=== PATIENT | female | born 1940 | race Caucasian/White ===

== ENCOUNTER 2023-06-28 13:09 | Outpatient (REF) | payer MEDICARE, SELFPAY ==
[2023-06-28 16:20] LABS: Hematocrit 43.4 % (37.0-47.0); Hemoglobin 14.7 g/dl (12.0-16.0); Mean Corpuscular HGB Conc 33.9 g/dl (31.0-35.0); Mean Corpuscular Hemoglobin 30.8 pg (27.0-33.0); Mean Platelet Volume 10.8 fL (9.4-12.3); Platelet Count 255 X10*3/uL (160-400); Red Blood Count 4.77 X10*6/uL (4.20-5.50); Red Cell Distribution Width 13.2 % (11.0-16.0)
[2023-06-28 16:30] LABS: Estimated Average Glucose 123 mg/dL; Hemoglobin A1c % 5.9 % (<6.0)
[2023-06-28 18:34] LABS: Creatinine Urine 53.16 mg/dL
[2023-06-28 18:46] LABS: Alanine Aminotransferase 17 U/L (0-31); Albumin Level 4.3 g/dL (3.5-5.0); Alkaline Phosphatase 101 U/L (39-117); Anion Gap 17 (12-20); Aspartate Amino Transferase 20 U/L (5-31); Bilirubin Direct 0.1 mg/dL (0.0-0.5); Bilirubin Total 0.5 mg/dL (0.0-1.0); Blood Urea Nitrogen 9 mg/dL (9-16); Calcium 9.9 mg/dL (8.4-10.2); Carbon Dioxide 23 mmol/L (22-29); Chloride 105 mmol/L (96-108); Cholesterol 241 mg/dL (<200); Estimated Glomerular Filt Rate > 60; Glucose Random 75 mg/dL (60-115); HDL Cholesterol 47 mg/dL (>40); Potassium 3.5 mmol/L (3.3-5.1); Sodium 141 mmol/L (135-145); Total Protein 7.8 g/dL (6.5-8.0); Triglycerides 400 mg/dL (<150)
[2023-06-28 18:54] LABS: Free T4 (Free Thyroxine) 0.91 ng/dL (0.71-1.85); Thyroid Stimulating Hormone 1.92 uIU/mL (0.32-4.0); Vitamin D 25-OH Total 32.7 ng/mL (>30)
== END 2023-06-28 13:10 | disposition home or self-care (01) ==
LOC: HO.HHCL 13:09
PROVIDERS: Visit Provider Family Medicine
DX: I10 Essential (primary) hypertension (principal); E78.49 Other hyperlipidemia
CPT/HCPCS: 36415; 80048; 80061; 80076; 82043; 82306; 82570; 83036; 84439; 84443; 85027

== ENCOUNTER 2024-06-16 11:22 | Outpatient (REF) | payer OTHER, SELFPAY ==
[2024-06-16 13:26] LABS: Hematocrit 42.5 % (37.0-47.0); Hemoglobin 13.9 g/dl (12.0-16.0); Mean Corpuscular HGB Conc 32.7 g/dl (31.0-35.0); Mean Corpuscular Hemoglobin 30.1 pg (27.0-33.0); Mean Platelet Volume 11.4 fL (9.4-12.3); Platelet Count 216 X10*3/uL (160-400); Red Blood Count 4.62 X10*6/uL (4.20-5.50); Red Cell Distribution Width 13.1 % (11.0-16.0); White Blood Count 7.3 X10*3/uL (4.8-10.8)
[2024-06-16 13:30] LABS: Estimated Average Glucose 120 mg/dL; Hemoglobin A1C 144.2933 umol/L; Hemoglobin A1c % 5.8 % (<6.0); Total Hemoglobin (HGBA1C) 3621.3433 umol/L
[2024-06-16 13:41] LABS: Alanine Aminotransferase 14 U/L (0-31); Albumin Level 4.1 g/dL (3.5-5.0); Alkaline Phosphatase 103 U/L (39-117); Anion Gap 11 (12-20); Aspartate Amino Transferase 22 U/L (5-31); Bilirubin Direct 0.2 mg/dL (0.0-0.5); Bilirubin Total 0.5 mg/dL (0.0-1.0); Blood Urea Nitrogen 10 mg/dL (9-16); Calcium 9.8 mg/dL (8.4-10.2); Carbon Dioxide 30 mmol/L (22-29); Chloride 105 mmol/L (96-108); Cholesterol 205 mg/dL (<200); Estimated Glomerular Filt Rate > 60; Glucose Random 101 mg/dL (60-115); HDL Cholesterol 40 mg/dL (>40); Sodium 142 mmol/L (135-145); Total Protein 7.3 g/dL (6.5-8.0); Triglycerides 465 mg/dL (<150)
[2024-06-16 13:47] LABS: Free T4 (Free Thyroxine) 0.83 ng/dL (0.71-1.85); Thyroid Stimulating Hormone 1.65 uIU/mL (0.32-4.0); Vitamin D 25-OH Total 59.6 ng/mL (>30)
--- OUTSIDE RECORDS SUMMARY | 2024-06-16 13:47 | XMS_ITS | Encounter Summary ---
Author Organization [employer] Address [address] [facility] 7t [place] [address] Care Team Providers Care Paramedic Instructor Name Role Phone Verna Sullivan DO Primary Care Provider + [phone] Encounter Details Date Type Department Care Team ([facility] st Contact Info) Description 06/12/2023 Telephone [facility] MEDICINE [address] [place], [place] [phone] Verna Sullivan DO [address] [place], [place] [phone] Social History Tobacco Use Types Packs/Day Years Used Date Smoking Tobacco: Former Cigarettes Q uit: 11/21/2021 Passive Smoke Exposure: Past Smokeless Tobacco: Never Alcohol Use Standard Drinks/Week Comments Never 0 (1 standard drink = 0.6 oz pur e alcohol) Depression Answer Date Recorded Patient Health Questionnaire-9 Score 3 05/15/2022 Housing Stability Answer Date Recorded What is your housing situation today? I have gigi segovia 12/04/[address] you li ve. Do you have problems with any of the following? None of the above 12/04/2022 Food Insecurity Answer Date Recorded Within the past 12 months, y ou worried that your food would run out before you got money to buy more: Never True 12/04/2022 Within the past 12 months,th e food you bought just didn't last and you didn't have enough money to get more: Never True Transportation Answer Date Recorded In the past 12 months, has l ack of transportation kept you from medical appts, meetings, work or from getting things needed for daily living? No 12/04/2022 Utilities Answer Date Recorded In the past 12 months, has t he electric, gas, oil or water company threatened to shut off services in your home? No 12/04/2022 Depression Answer Date Recorded Patient Health Questionnaire-2 Score 2 05/15/2022 Comments Unknown Sex and Gender Information Value Date Recorded Sex Assigned at Female 12/19/2021 10:19 AM EDT Legal Sex Female 10:19 AM EDT Gender Identity Female 12/19/2021 10:19 AM EDT Sexual Orientation Choose not to disclose 2021 10:19 AM EDT documented as of this encounter Plan of Treatment Upcoming Encounters Date Type Department Care Team (Late st Contact Info) Description 09/05/2024 2:00 PM EDT Telemedicine [facility] MEDICINE [address] [place] [address] Lucrecia Shah RN documented as of this encounter Visit Diagnoses Not on filedocumented in this encounter Additional Health Concerns Assessment Noted Time PHQ-9 Depression Total Score: 3 05/16/19 23 9:13 AM EDT documented as of this encounter Care Teams Paramedic Instructor Relationship Specialty Start Date End Date Verna Sullivan DO [address] [place] [address] PCP - General Family Medicine 02/01/12 documented as of this encounter
--- OUTSIDE RECORDS SUMMARY | 2024-06-16 13:47 | XMS_ITS | Encounter Summary ---
Author Organization [employer] Address [address] [facility] 7t [place] [address] Care Team Providers Care Nurse Sane Name Role Phone Verna Sullivan DO Primary Care Provider + [phone] Reason for Visit * Reason Comments Med Refill Encounter Details Date Type Department Care Team (Late st Contact Info) Description 06/10/2024 Refill [facility] MEDICINE [address] [place], [place] [phone] Verna Sullivan DO 230 [place], [place] [phone] Social History Tobacco Use Types Packs/Day Years Used Date Smoking Tobacco: Former Cigarettes Q uit: 11/21/2021 Passive Smoke Exposure: Past Smokeless Tobacco: Never Alcohol Use Standard Drinks/Week Comments Never 0 (1 standard drink = 0.6 oz pur e alcohol) Alcohol Answer Date Recorded Frequency of Alcohol Consumption Not on file 10/30/2023 Average Number of Drinks Not on file 024 Frequency of Binge Drinking Not on file 10/20 Score 0 10/30/2023 Depression Answer Date Recorded Patient Health Questionnaire-9 Score 6 10/30/2023 Patient Health Questionnaire-9 Score 6 10/30/2023 Last PHQ-9: Questionnaire Data Not on file 0 10/30/2023 Housing Stability Answer Date Recorded What is your housing situation today? I have gigi segovia 06/28/[address] you li ve. Do you have problems with any of the following? None of the above 06/28/2023 Food Insecurity Answer Date Recorded Within the past 12 months, y ou worried that your food would run out before you got money to buy more: Never True 06/28/2023 Within the past 12 months,th e food you bought just didn't last and you didn't have enough money to get more: Never True 10/2023 Transportation Answer Date Recorded In the past 12 months, has l ack of transportation kept you from medical appts, meetings, work or from getting things needed for daily living? No 06/28/2023 Utilities Answer Date Recorded In the past 12 months, has t he electric, gas, oil or water company threatened to shut off services in your home? No 06/28/2023 Depression Answer Date Recorded Patient Health Questionnaire-2 Score 3 10/30/2023 Comments Unknown Sex and Gender Information Value [...] Info) Description 09/05/2024 2:00 PM EDT Telemedicine [facility] MEDICINE [address] [place] [address] Lucrecia Shah RN documented as of this encounter Visit Diagnoses Not on filedocumented in this encounter Additional Health Concerns Assessment Noted Time PHQ-9 Depression Total Score: 6 10/30/19 24 10:37 AM EDT documented as of this encounter Care Teams Nurse Sane Relationship Specialty Start Date End Date Verna Sullivan DO [address] [place] [address] PCP - General Family Medicine 02/01/12 documented as of this encounter
--- OUTSIDE RECORDS SUMMARY | 2024-06-16 13:47 | XMS_ITS | Encounter Summary ---
Author Organization [employer] Address [address] [facility] 7t [place] [address] Care Team Providers Care Training Analyst Name Role Phone Verna Sullivan DO Primary Care Provider + [phone] Reason for Visit * Reason Comments Med Refill Encounter Details Date Type Department Care Team (Late st Contact Info) Description 06/06/2024 Refill [facility] MEDICINE [address] [place], [place] [phone] Verna Sullivan DO [address] [place], [place] [phone] Social History Tobacco Use Types Packs/Day Years [...] your housing situation today? I have gigi sgeovia 06/28/[address] you li [...] Description 09/05/2024 2:00 PM EDT Telemedicine [facility] MEDICINE [address] [place] [address] Lucrecia Shah RN documented as of this encounter Visit Diagnoses Not on filedocumented in this encounter Additional Health Concerns Assessment Noted Time PHQ-9 Depression Total Score: 6 10/30/19 24 10:37 AM EDT documented as of this encounter Care Teams Training Analyst Relationship Specialty Start Date End Date Verna Sullivan DO [address] [place] [address] PCP - General Family Medicine 02/01/12 documented as of this encounter
--- OUTSIDE RECORDS SUMMARY | 2024-06-16 13:47 | XMS_ITS | Encounter Summary ---
Author Organization [employer] Address [address] [facility] 7[address] [place] [address] Care Team Providers Care Railway Signalling Engineer Name Role Phone Verna Sullivan DO Primary Care Provider + [phone] Reason for Visit * Reason Comments Med Refill Encounter Details Date Type Department Care Team (Late st Contact Info) Description 06/12/2023 Refill [facility] MEDICINE [address] [place], [place] [phone] Verna Sullivan DO [address] [place], [place] [phone] Social History Tobacco Use Types Packs/Day Years [...] Info) Description 09/05/2024 2:00 PM EDT Telemedicine [facility] MEDICINE [address] [place] [address] Lucrecia Shah RN documented as of this encounter Visit Diagnoses Not on filedocumented in this encounter Additional Health Concerns Assessment Noted Time PHQ-9 Depression Total Score: 3 05/16/19 23 9:13 AM EDT documented as of this encounter Care Teams Railway Signalling Engineer Relationship Specialty Start Date End Date Verna Sullivan DO [address] [place] [address] PCP - General Family Medicine 02/01/12 documented as of this encounter
--- OUTSIDE RECORDS SUMMARY | 2024-06-16 13:47 | XMS_ITS | Encounter Summary ---
Author Organization [employer] [facility] Address [address] [facility] 7t [place] [address] Care Team Providers Care Sfdc Solution Architect Name Role Phone Verna Sullivan DO Primary Care Provider + [phone] Reason for Visit * Reason Comments Med Refill Encounter Details Date Type Department Care Team (Late st Contact Info) Description 06/07/2022 Refill [facility] MEDICINE [address] [place], [place] [phone] Verna Sullivan DO [address] [place], [place] [phone] S/P lobectomy of lung Social History Tobacco Use Types Packs/Day Years Used Date Smoking Tobacco: Former Cigarettes Q uit: 11/21/2021 Passive Smoke Exposure: Past Smokeless Tobacco: Never Alcohol Use Standard Drinks/Week Comments Never 0 (1 standard drink = 0.6 oz pur e alcohol) Depression Answer Date Recorded Patient Health Questionnaire-9 Score 3 05/15/2022 Depression Answer Date Recorded Patient Health Questionnaire-2 Score 2 05/15/2022 Comments Unknown Sex and Gender Information Value Date Recorded Sex Assigned at Female 12/19/2021 10:19 AM EDT Legal Sex Female 10:19 AM EDT Gender Identity Female 12/19/2021 10:19 AM EDT Sexual Orientation Choose not to disclose 2021 10:19 AM EDT COVID-19 Exposure Response Date Recorded In the last 10 days, have yo u been in contact with someone who was confirmed or suspected to have Coronavirus/COVID-19? No / Unsure 05/15/2022 9:02 AM EDT documented as of this encounter Plan of Treatment Upcoming Encounters Date Type Department Care Team (Late st Contact Info) Description 09/05/2024 2:00 PM EDT Telemedicine [facility] MEDICINE [address] [place] [address] Lucrecia Shah RN documented as of this encounter Visit Diagnoses Diagnosis S/P lobectomy of lung Other postprocedural status documented in this encounter Additional Health Concerns Assessment Noted Time PHQ-9 Depression Total Score: 3 05/16/19 23 9:13 AM EDT documented as of this encounter Care Teams Sfdc Solution Architect Relationship Specialty Start Date End Date Verna Sullivan DO [address] [place] [address] PCP - General Family Medicine 02/01/12 documented as of this encounter
--- OUTSIDE RECORDS SUMMARY | 2024-06-16 13:47 | XMS_ITS | Encounter Summary ---
Author Organization [employer] Address [address] [facility] 7t [place] [address] Care Team Providers Care Shipyard Painter Name Role Phone Verna Sullivan DO Primary Care Provider + [phone] Reason for Visit * Reason Comments Med Refill Encounter Details Date Type Department Care Team (Late st Contact Info) Description 01/20/2023 Refill [facility] MEDICINE [address] [place], [place] [phone] Verna Sullivan DO [address] [place], [place] [phone] Social History Tobacco Use Types Packs/Day Years [...] Info) Description 09/05/2024 2:00 PM EDT Telemedicine [facility] MEDICINE [address] [place] [address] Lucrecia Shah RN documented as of this encounter Visit Diagnoses Not on filedocumented in this encounter Additional Health Concerns Assessment Noted Time PHQ-9 Depression Total Score: 3 05/16/19 23 9:13 AM EDT documented as of this encounter Care Teams Shipyard Painter Relationship Specialty Start Date End Date Verna Sullivan DO [address] [place] [address] PCP - General Family Medicine 02/01/12 documented as of this encounter
--- OUTSIDE RECORDS SUMMARY | 2024-06-16 13:47 | XMS_ITS | Encounter Summary ---
Author Organization [employer] Address [address] [facility] 7t [place] [address] Care Team Providers Care Dockmaster Name Role Phone Verna Sullivan DO Primary Care Provider + [phone] Reason for Visit * Reason Onset Date Comments Durable Medical Equipment 01/02/2024 Encounter Details Date Type Department Care Team ([facility] st Contact Info) Description 01/02/2024 Telephone [facility] MEDICINE [address] [place], [place] [phone] Verna Sullivan DO [address] [place] [address] Durable Medical Equipment Social History Tobacco Use Types Packs/Day Years [...] AM EDT documented as of this encounter Miscellaneous Notes * Telephone Encounter - Laurie Hector - 01/02/2024 12:48 PM EST Tc from pt daughter Maria Del Carmen requesting status on DME recliner discussed during last office visit (10/30/23). If any questions contact Maria Del Carmen at [phone] documented in this encounter Plan of Treatment Upcoming Encounters Date Type Department Care Team (Late st Contact Info) Description 09/05/2024 2:00 PM EDT Telemedicine [facility] MEDICINE [address] [place] [address] Lucrecia Shah, TAMIR documented as of this encounter Visit Diagnoses Not on filedocumented in this encounter Additional Health Concerns Assessment Noted Time PHQ-9 Depression Total Score: 6 10/30/19 10:37 AM EDT documented as of this encounter Care Teams Dockmaster Relationship Specialty Start Date End Date Verna Sullivan DO [address] [place] [address] PCP - General Family Medicine 02/01/12 documented as of this encounter
--- OUTSIDE RECORDS SUMMARY | 2024-06-16 13:47 | XMS_ITS | Encounter Summary ---
Author Organization [employer] Address [address] [facility] 7t [place] [address] Care Team Providers Care Marketing Assistant Name Role Phone Verna Sullivan Primary Care Provider + [phone] Reason for Visit * Reason Comments Med Refill Encounter Details Date Type Department Care Team (Late st Contact Info) Description 05/07/2024 Refill [facility] MEDICINE 230 [place], [place] [phone] [facility] [address] [place], [place] [phone] Social History Tobacco Use Types Packs/Day Years [...] Info) Description 09/05/2024 2:00 PM EDT Telemedicine [facility] MEDICINE [address] [place] [address] Lucrecia Shah RN documented as of this encounter Visit Diagnoses Not on filedocumented in this encounter Additional Health Concerns Assessment Noted Time PHQ-9 Depression Total Score: 6 10/30/19 24 10:37 AM EDT documented as of this encounter Care Teams Marketing Assistant Relationship Specialty Start Date End Date Verna Sullivan DO [address] [place] [address] PCP - General Family Medicine 02/01/12 documented as of this encounter
--- OUTSIDE RECORDS SUMMARY | 2024-06-16 13:47 | XMS_ITS | Encounter Summary ---
Author Organization [employer] Address [address] [facility] 7t [place] [address] Care Team Providers Care Dental Office Assistant Name Role Phone Verna Sullivan Primary Care Provider + [phone] Reason for Visit * Reason Comments Med Refill Encounter Details Date Type Department Care Team (Late st Contact Info) Description 06/12/2023 Refill [facility] MEDICINE [address] [place], [place] [phone] [facility] [address] [place], [place] [phone] Social History Tobacco Use Types Packs/Day Years [...] Info) Description 09/05/2024 2:00 PM EDT Telemedicine [facility] MEDICINE [address] [place] [address] Lucrecia Shah RN documented as of this encounter Visit Diagnoses Not on filedocumented in this encounter Additional Health Concerns Assessment Noted Time PHQ-9 Depression Total Score: 3 05/16/19 23 9:13 AM EDT documented as of this encounter Care Teams Dental Office Assistant Relationship Specialty Start Date End Date Verna Sullivan DO [address] [place] [address] PCP - General Family Medicine 02/01/12 documented as of this encounter
--- OUTSIDE RECORDS SUMMARY | 2024-06-16 13:47 | XMS_ITS | Encounter Summary ---
Author Organization [employer] Address [address] [facility] 7t [place] [address] Care Team Providers Care Loss Prevention Auditor Name Role Phone Verna Sullivan DO Primary Care Provider + [phone] Reason for Visit * Reason Onset Date Comments Med Refill 12/17/2023 Encounter Details Date Type Department Care Team ([facility] st Contact Info) Description 12/17/2023 Telephone [facility] MEDICINE 230 [place], [place] [phone] Verna Sullivan DO 230 [place], [place] [phone] Med Refill Social History Tobacco Use Types Packs/Day Years [...] encounter Miscellaneous Notes * Telephone Encounter - Verna Ham LPN - 12/17/2023 1:26 PM EDT Stanton-3 was sent to [facility][id number] on 06/28/23 #60 with 11 refills and Amlodipine pended to provider for approval. * Telephone Encounter - Christine Tovar - 12/17/2023 1:20 PM EDT TC from pt requesting medication refill. Medications needing refill : 1-amLODIPine (Norvasc) 5 MG tablet 2-omega-3 (Fish Oil) 1000 MG capsule To be sent to: [id number] documented in this encounter Plan of Treatment Upcoming Encounters Date Type Department Care Team (Late st Contact Info) Description 09/05/2024 2:00 PM EDT Telemedicine [address] [phone] Alyssa, Lucrecia, RN documented as of this encounter Visit Diagnoses Not on filedocumented in this encounter Additional Health Concerns Assessment Noted Time PHQ-9 Depression Total Score: 6 10/30/19 24 10:37 AM EDT documented as of this encounter Care Teams Loss Prevention Auditor Relationship Specialty Start Date End Date Verna Sullivan DO [address] [place] [address] PCP - General Family Medicine 02/01/12 documented as of this encounter
--- OUTSIDE RECORDS SUMMARY | 2024-06-16 13:47 | XMS_ITS | Encounter Summary ---
Author Organization [employer] Address [address] [facility] 7t [place] [address] Care Team Providers Care Storage Engineer Name Role Phone Verna Sullivan DO Primary Care Provider + [phone] Reason for Visit * Reason Onset Date Comments Med Refill 06/12/2024 Encounter Details Date Type Department Care Team ([facility] st Contact Info) Description 06/12/2024 Telephone [facility] MEDICINE [address] [place], [place] [phone] Verna Sullivan DO 230 [place], [place] [phone] Med Refill Social History Tobacco Use Types [...] encounter Miscellaneous Notes * Telephone Encounter - Alison Ramsay RN - 06/13/2024 9:00 AM EDT [facility] reviewed, pt. Last picked up 28 day supply 05/20/24, will be due 06/17/24. Will pend to PCP 06/16/24 * Telephone Encounter - Vitor Goodman - 06/12/2024 9:11 AM EDT TC from pt requesting medication refill. Medications needing refill : HYDROcodone-acetaminophen ([place]) 5-325 MG tablet To be sent to: [facility] #[id number] - [place], [place] - [address] [facility] documented in this encounter Plan of Treatment Upcoming Encounters Date Type Department Care Team (Late st Contact Info) Description 09/05/2024 2:00 PM EDT Telemedicine [facility] MEDICINE [address] [place] [address] Lucrecia Shah RN documented as of this encounter Visit Diagnoses Not on filedocumented in this encounter Additional Health Concerns Assessment Noted Time PHQ-9 Depression Total Score: 6 10/30/19 24 10:37 AM EDT documented as of this encounter Care Teams Storage Engineer Relationship Specialty Start Date End Date Verna Sullivan DO [address] [place] [address] PCP - General Family Medicine 02/01/12 documented as of this encounter
--- OUTSIDE RECORDS SUMMARY | 2024-06-16 13:47 | XMS_ITS | Encounter Summary ---
Author Organization [employer] Address [address] [facility] 7t [place] [address] Care Team Providers Care Shellfish Farming Supervisor Name Role Phone Verna Sullivan DO Primary Care Provider + [phone] Reason for Visit * Reason Comments Med Refill Encounter Details Date Type Department Care Team (Late st Contact Info) Description 06/12/2023 Refill [facility] [address] [place], [place] [phone] Verna Sullivan DO [address] [place] [address] Social History Tobacco Use Types Packs/Day Years [...] Info) Description 09/05/2024 2:00 PM EDT Telemedicine [facility] MEDICINE 230 [place] [address] Lucrecia Shah RN documented as of this encounter Visit Diagnoses Not on filedocumented in this encounter Additional Health Concerns Assessment Noted Time PHQ-9 Depression Total Score: 3 05/16/19 23 9:13 AM EDT documented as of this encounter Care Teams Shellfish Farming Supervisor Relationship Specialty Start Date End Date Verna Sullivan DO [address] [place] [address] PCP - General Family Medicine 02/01/12 documented as of this encounter
--- OUTSIDE RECORDS SUMMARY | 2024-06-16 13:47 | XMS_ITS | Encounter Summary ---
Author Organization [employer] Address [address] [facility] 7t [place] [address] Care Team Providers Care Solar Energy Systems Designer Name Role Phone Verna uSllivan DO Primary Care Provider + [phone] Encounter Details Date Type Department Care Team (Latest Contact Info) Description 06/16/2024 Travel Social History Tobacco Use Types Packs/Day Years [...] Patient Health Questionnaire-2 Score 3 10/30/2023 Comments No Sex and Gender Information Value Date Recorded Sex Assigned at Female 12/19/2021 10:19 AM EDT Legal Sex Female 10:19 AM EDT Gender Identity Female 12/19/2021 10:19 AM EDT Sexual Orientation Choose not to disclose 2021 10:19 AM EDT documented as of this encounter Plan of Treatment Upcoming Encounters Date Type Department Care Team (Late st Contact Info) Description 09/05/2024 2:00 PM EDT Telemedicine [facility] MEDICINE [address] [place] [address] Lucrecia Shah RN documented as of this encounter Visit Diagnoses Not on filedocumented in this encounter Additional Health Concerns Assessment Noted Time PHQ-9 Depression Total Score: 6 10/30/19 24 10:37 AM EDT documented as of this encounter Care Teams Solar Energy Systems Designer Relationship Specialty Start Date End Date Verna Sullivan DO 230 [place] [address] PCP - General Family Medicine 02/01/12 documented as of this encounter
--- OUTSIDE RECORDS SUMMARY | 2024-06-16 13:47 | XMS_ITS | Encounter Summary ---
Author Organization [employer] Address [address] [facility] 7t [place] [address] Care Team Providers Care Gunner Mate Name Role Phone Verna Sullivan DO Primary Care Provider + [phone] Reason for Visit * Reason Comments Med Refill Encounter Details Date Type Department Care Team (Late st Contact Info) Description 11/22/2023 Refill [facility] [address] [place], [place] [phone] Verna Sullivan DO 230 [place] [address] Social History Tobacco Use Types Packs/Day Years [...] Info) Description 09/05/2024 2:00 PM EDT Telemedicine [facility] MEDICINE [address] [place] [address] Lucrecia Shah RN documented as of this encounter Visit Diagnoses Not on filedocumented in this encounter Additional Health Concerns Assessment Noted Time PHQ-9 Depression Total Score: 6 10/30/19 24 10:37 AM EDT documented as of this encounter Care Teams Gunner Mate Relationship Specialty Start Date End Date Verna Sullivan DO 230 [place] [address] PCP - General Family Medicine 02/01/12 documented as of this encounter
--- OUTSIDE RECORDS SUMMARY | 2024-06-16 13:47 | XMS_ITS | Clinical Summary ---
Author Organization [facility] it[facility] Address [address] [place] [address] Care Team Providers Care Loader Operator Name Role Phone MonoVerna qureshi Primary Care Provider [phone] Social History Tobacco Use Types Packs/Day Years Used Date Smoking Tobacco: Never Assessed Comments Unknown Sex and Gender Information Value Date Recorded Sex Assigned at Not on file Legal Sex Female 12:23 AM EST Gender Identity Not on file Sexual Orientation Not on file Plan of Treatment Health Maintenance Due Date Last Done Comments DTaP,Tdap,and Td Vaccines (1 - Tdap) 1959 Pneumococcal Vaccine: 50+ Ye ars (1 of 1 - PCV) 1989 Zoster Vaccines (1 of 2) 1989 RSV Immunization Adult Patie nts (1 - 1-dose 75+ series) 2014 Depression Screening 01/22/2022 Falls Risk Assessment 01/22/2022 Osteoporosis Screening (Bone Density Screening) 01/22/2022 Social Influencers of Health Screening 01/22/2022 COVID-19 Vaccine (2023-2 5 season) 2023 Influenza Vaccine (Season Ended) 2024 HIB Vaccines Aged Out No longer eligi ble based on patient's age to complete this topic HPV Vaccines Aged Out No longer eligi ble based on patient's age to complete this topic Hepatitis A Vaccines Aged Out No long er eligible based on patient's age to complete this topic Hepatitis B Vaccines Aged Out No long er eligible based on patient's age to complete this topic IPV Vaccines Aged Out No longer eligi ble based on patient's age to complete this topic MMR Vaccines Aged Out No longer eligi ble based on patient's age to complete this topic Meningococcal ACWY Vaccine Aged Out N o longer eligible based on patient's age to complete this topic Meningococcal B Vaccine Aged Out No l onger eligible based on patient's age to complete this topic RSV Immunization Patients Un precious 20 months Aged Out No longer eligible b ased on patient's age to complete this topic Varicella Vaccines Aged Out No longer eligible based on patient's age to complete this topic Advance Directives Documents on File Type Date Recorded Patient Engineering Associate Expl anation Health Care Decision (hx) 12/09/2013 AD NICOLE DIRECTIVE Health Care Decision (hx) 12/09/2013 AD NICOLE DIRECTIVE Health Care Decision (hx) 12/09/2013 AD NICOLE DIRECTIVE Health Care Decision (hx) 12/09/2013 AD NICOLE DIRECTIVE Health Care Decision (hx) 12/09/2013 AD NICOLE DIRECTIVE Care Teams Loader Operator Relationship Specialty Start Date End Date Verna Sullivan DO [address] [place] [address] PCP - General Internal Medicine 01/13/20
--- OUTSIDE RECORDS SUMMARY | 2024-06-16 13:47 | XMS_ITS | Clinical Summary ---
Author Organization [employer] Address [address] [facility] [address] [place] [address] Care Team Providers Care Collator Hand Name Role Phone Verna Sullivan Primary Care Provider [phone] Allergies Active Allergy Reactions Criticality Noted Date Comments Aspirin 04/02/2014 Medications Mapap Arthritis Pain 650 MG ER tablet TAKE 1 TABLET BY MOUTH EVERY 8 HOURS NEEDED FOR PAIN OR FEVER 11/11/19 22 Active docusate sodium (Colace) 100 MG capsule TAKE 1 CAPSULE BY MOUTH TWO TIMES A DAY FOR 7 DAYS 02/15/20 22 Active naloxone (Narcan) 4 mg/0.1 mL nasal spray spray 0.1 milliliter by intranasal route in 1 nostril may repeat dose every 2-3 minutes as needed alternating nostrils with each dose 08/27/19 21 Active Blood Pressure kit 1 each 1 (one) time per week. 1 kit 06/28/19 24 Active Calcium Carb-Cholecalci ferol 600-10 MG-MCG tablet Take 1 tablet by mouth 2 times daily. 60 tablet 06/28/19 24 2024 Active cetirizine (ZyrTEC) 10 MG tablet Take 1 tablet (10 mg) by mouth Once per day. 30 tablet 06/28/19 24 2024 Active cholecalciferol (D3 Super Strength) 50 MCG (2000 UT) capsule Take 1 capsule (50 mcg) by mouth Once per day. 30 capsule 06/28/19 24 2024 Active fluticasone (Flonase) 50 MCG/ACT nasal spray SHAKE LIQUID AND USE 2 SPRAYS IN EACH NOSTRIL EVERY DAY 16 g 11 06/28/19 24 Active gabapentin (Neurontin) 300 MG capsuleIndicati ons:S/P lobectomy of lung TAKE 1 CAPSULE BY MOUTH THREE TIMES DAILY NEEDED FOR MODERATE PAIN 90 capsule 3 06/28/19 24 Active metoprolol tartrate (Lopressor) 25 MG tabletIndicatio ns:Essential hypertension Take 0.5 tablets (12.5 mg) by mouth 2 times daily. 30 tablet 11 06/28/19 24 2024 Active furosemide (Lasix) 20 MG tablet TAKE 1 TABLET(20 MG) BY MOUTH EACH DAY NEEDED FOR SWELLING 30 tablet 1 10/16/19 24 Active baclofen (Lioresal) 10 MG tabletIndicatio ns:Muscle spasm Take 0.5 tablets (5 mg) by mouth if needed at bedtime for muscle spasms. 30 tablet 2 10/30/19 24 Active Diclofenac Sodium 1 % gel Apply 2 g topically if needed in the morning, at noon, in the evening, and at bedtime (pain). 150 g 3 10/30/19 24 Active Multiple Vitamin (Multivitamin) tablet TAKE 1 TABLET BY MOUTH DAILY WITH FOOD 90 tablet 3 11/13/19 24 Active mirtazapine (Remeron) 15 MG tablet TAKE 1/2 TABLET(7.5 MG) BY MOUTH AT BEDTIME 15 tablet 3 11/13/19 24 Active amLODIPine (Norvasc) 5 MG tablet TAKE 1 TABLET(5 MG) BY MOUTH IN THE MORNING 90 tablet 04/14/19 25 Active enalapril (Vasotec) 5 MG tablet TAKE 1 TABLET(5 MG) BY MOUTH IN THE MORNING 90 tablet 04/14/19 25 Active omega-3 (Fish Oil) 1000 MG capsule TAKE 1 CAPSULE BY MOUTH 2 TIMES A DAY 180 capsule 05/08/19 25 Active celecoxib (CeleBREX) 200 MG capsuleIndicati ons:S/P lobectomy of lung TAKE 1 CAPSULE BY MOUTH TWICE A DAY NEEDED FOR MODERATE PAIN 60 capsule 1 06/04/19 25 Active atorvastatin (Lipitor) 40 MG tablet TAKE 1 TABLET BY MOUTH EVERYDAY AT BEDTIME 30 tablet 11 06/13/19 25 Active HYDROcodone-lila taminophen (Montgomery) 5-325 MG tabletIndicatio ns:Chronic shoulder pain, unspecified laterality Take 1 tablet by mouth every 6 (six) hours if needed for severe pain for up to 28 days. 112 tablet 06/17/19 25 2024 Active atorvastatin (Lipitor) 40 MG tablet Take 1 tablet (40 mg) by mouth at bedtime. 30 tablet 11 06/28/19 24 2024 Discontinued celecoxib (CeleBREX) 200 MG capsuleIndicati ons:S/P lobectomy of lung TAKE 1 CAPSULE BY MOUTH TWICE DAILY NEEDED FOR MODERATE PAIN 60 capsule 1 04/08/19 25 2024 Discontinued HYDROcodone-lila taminophen (Montgomery) 5-325 MG tabletIndicatio ns:Chronic shoulder pain, unspecified laterality Take 1 tablet by mouth every 6 (six) hours if needed for severe pain for up to 28 days. 112 tablet 05/17/19 25 2024 Discontinued(R eorder (will not trigger notification to Pharmacy)) Active Problems Problem Noted Date Diagnosed Date Healthcare maintenance 06/28/2023 Assessment & Plan (06/28/2023 3:04 PM EDT): -she declines flu vaccine -she declines COVID vaccine -she declines RSV vaccine -she declines Tdap -she declines prevnar -she declines zoster vaccine -she declines Shingrix vaccine -s/p pneumovax JAN 2009 -Hep A immune -no indication for pap smear screening given age -mammo BIRADS 20 JUL 2013, she declines further mammo screening -DEXA with osteopenia DEC 2021 -colonoscopy with mild diverticulosis, int hemorrhoids JUL 2010->she declines repeat colonoscopy -A1c 5.6% APR 2022->repeat prior to next visit -STI/HIV screen negative DEC 2014 Bilateral carpal tunnel syndrome 09/21/2022 Aortic valve stenosis 09/14/2022 Assessment & Plan (06/28/2023 3:03 PM EDT): ECHO with nml EF, mild diastolic dysfunction, mild , mild AR and mildly dilated ascending aorta MAY 2017, repeat per cards -f/u with cards as scheduled, due MAY 2024 Chronic allergic rhinitis 09/14/2022 Assessment & Plan (06/28/2023 3:03 PM EDT): Controlled -cont zyrtec and flonase daily Urinary incontinence 09/14/2022 Aneurysm of aortic arch 02/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 02/22/2022 Squamous cell carcinoma lung, right 02/21/2022 Assessment & Plan (06/28/2023 3:03 PM EDT): s/p lobectomy JAN 2022 -cont boost supplementation -f/u with CT surgeon as scheduled, due AUG 2023 Status post lobectomy of lung 02/21/2022 Depressive disorder 02/21/2022 Assessment & Plan (06/28/2023 3:02 PM EDT): Mood significantly improved -she denies any SI/HI -she has the number for crisis -cont remeron nightly History of tobacco use 02/21/2022 Tenosynovitis of left hand 02/15/2022 Diverticulosis 12/15/2014 Essential hypertension 12/15/2014 Assessment & Plan (06/28/2023 3:01 PM EDT): BP controlled -cont enalapril and norvasc daily -cont toprol BID -cont intermittent home BP monitoring -Cr/GFR nml APR 2022, repeat prior to next visit -there is EKG in chart -s/p optho eval 2020 at [facility] [place], review next visit Full thickness rotator cuff tear 12/15/2014 History of myocardial infarction 12/15/2014 Assessment & Plan (06/28/2023 3:04 PM EDT): 2/2 demand ischemia ISO GIB, no ischemia on stress test -RF modification, optimal BP control -ECHO with nml EF, mild diastolic dysfunction, mild , mild AR and mildly dilated ascending aorta May 2017 -f/u with cards as scheduled, will get copy of eval Hyperlipidemia 12/15/2014 Assessment & Plan (06/28/2023 3:01 PM EDT): LDL at goal APR 2022 -cont lipitor nightly -cont fish oil supplementation -repeat lipids prior to next visit Osteopenia 12/15/2014 Chronic shoulder pain 12/15/2014 Assessment & Plan (06/28/2023 3:03 PM EDT): With intermittent flaring -shoulder XR with mild degenerative changes MAR 2017 -MRI shoulder with moderate degerative arthrosis AC joint, severe tendinosis and full thickness tear with atrophy JUL 2014 -cont vicodin for severe pain control -she declines repeat PT -f/u with ortho prn Varicose veins 12/15/2014 Vitamin D deficiency 12/15/2014 Resolved Problems Problem Noted Date Diagnosed Date Resolved Date Myocardial infarct 02/22/2022 Malignant neoplasm of upper lobe of right lung 02/09/2022 05/15/2022 Encounters Date Type Department Care Team Description 06/16/2024 10:30 AM EDT Office Visit [facility] [address] [place] [address] Verna Sullivan DO Essential hypertension (Primary Dx); Other hyperlipidemia; Depressive disorder; Aortic valve stenosis; Squamous cell carcinoma lung, right (CMS/HCC); Chronic allergic rhinitis; History of myocardial infarction; Varicose veins with pain; Peripheral arterial disease ([facility]/HCC); Healthcare maintenance; Chronic shoulder pain, unspecified laterality 06/16/2024 Travel 06/12/2024 Telephone [facility] [address] [place] [address] Verna Sullivan DO Med Refill 06/10/2024 Refill [facility] [address] [place] [address] Verna Sullivan DO 06/06/2024 Refill [facility] [address] [place] [address] Verna Sullivan DO 06/02/2024 Refill [facility] [address] [place] [address] Bridget Holguin MD S/P lobectomy of lung 05/15/2024 Refill [facility] [address] [place] [address] Verna Sullivan DO Chronic shoulder pain, unspecified laterality 05/12/2024 Telephone [facility] [address] [place] [address] Verna Sullivan DO Med Refill 05/07/2024 Refill [facility] [address] [place] [address] [place], Alessandra, ICE CREAM VAN VENDOR 05/07/2024 Refill [facility] [address] [place] [address] Verna Sullivan DO 04/25/[address] [address] Verna Sullivan DO Vascular lower extremities arterial duplex study results 04/14/2024 Refill [facility] [address] [place] [address] Verna Sullivan DO 04/14/[address] [address] Verna Sullivan DO Chronic shoulder pain, unspecified laterality 04/07/2024 Refill [facility] [address] [place] [address] Verna Sullivan DO S/P lobectomy of lung 04/03/[address] [address] Verna Sullivan DO [facility] ([id number] for analytix only) 04/03/[address] [address] Verna Sullivan DO Recall Letter (Recall Letter sent 04/09/24.) 04/03/[address] [address] Verna Sullivan DO Recliner (Maria Del Carmen, the patient's daughter, called to check on the status of a request for a recliner for the patient. She stated that she was told that the request had been approved, but it has not been delivered to the patient. She is requesting a call at [phone].) 04/02/[address] [address] Verna Sullivan DO [employer] [facility] ([id number] for analytix only) 03/21/2024 11:00 AM EST Telemedicine [address] [address] Lucrecia Shah, dry talc racker right shoulder pain 03/21/2024 Refill [facility] [address] [place] [address] Lucrecia Shah, dry talc racker shoulder pain, unspecified laterality 03/21/2024 Travel 03/21/2024 Telephone [facility] [address] [facility] [place] [address] Lucrecia Shah RN Recommend HEALTH SOCIAL WORK PROFESSOR Tele Tier 2 from Last 3 Months Immunizations Name Administration Dates Next Due Influenza, IIV3, injectable 01/18/2006 Pneumococcal Polysaccharide PPSV23 01/27/2009 Social History Tobacco Use Types Packs/Day Years Used Date Smoking Tobacco: Former Cigarettes Q uit: 11/21/2021 Passive Smoke Exposure: Past Smokeless Tobacco: Never Tobacco Cessation:Counseling Given: Not Answered Alcohol Use Standard Drinks/Week Comments Never 0 [...] the past 12 months, has t he [employer], gas, oil or water company threatened to [...] not to disclose 2021 10:19 AM EDT Last Filed Vital Signs Vital Sign Reading Time Taken Comments Blood Pressure 140/70 06/16/2024 10:38 AM EDT Pulse 76 06/16/2024 10:38 AM EDT Temperature 36.2 ??C (97.1 ??F) 06/16/2024 10:38 AM E DT Respiratory Rate 18 06/16/2024 10:38 AM EDT Oxygen Saturation 99% 06/16/2024 10:38 AM EDT Inhaled Oxygen Concentration - - Weight 70 kg (154 lb 6 oz) 06/16/2024 10:38 AM E DT Height 162.6 cm (5' 4 ) 06/16/2024 10:38 AM EDT Body Mass Index 26.5 06/16/2024 10:38 AM EDT Plan of Treatment Upcoming Encounters Date Type Department Care Team (Late st Contact Info) Description 09/05/2024 2:00 PM EDT Telemedicine [facility] [address] [place] [id number] Lucrecia Shah, RN Health Maintenance Due Date Last Done Comments DTaP/Tdap/Td Vaccines (1 - Tdap) 1959 Zoster Vaccines (1 of 2) 1989 Pneumococcal Vaccine: 50+ Years (2 of 2 - PCV) 01/27/2010 01/27/2009 RSV Patients and Patients Aged 60 years or older (1 - 1-dose 75+ series) 2014 COVID-19 Vaccine (1 - season) 2023 Influenza Vaccine (#1) 2023 01/18/2006 SDOH Screening 06/27/2024 06/28/2023 Alcohol/Substance Use Screening 10/29/2024 10/30/2023 Depression Screening 10/29/2024 10/30/2023, 10/30/19 24 Diabetes: Hemoglobin A1C 06/16/2025 025, 06/28/2023, 05/15/2022, Additional history exists Tobacco Screening 06/16/2025 06/16/2024 Lipid Panel 06/27/2028 06/16/2024, 05/0 10/2023, 05/15/2022, Additional history exists HIB Vaccines Aged Out No longer eligi [...] patient's age to complete this topic Meningococcal Vaccine Aged Out No rodrick tavia eligible based on patient's age to complete this topic RSV under 20 months Aged Out No longe r eligible based on patient's age to complete this topic Rotavirus Vaccines Aged Out No longer eligible based on patient's age to complete this topic Procedures Procedure Name Priority Date/Time Associated Diagnosis Comments CBC Routine 06/16/2024 11:25 AM EDT Essential hypertension Other hyperlipidemia Depressive disorder Aortic valve stenosis Squamous cell carcinoma lung, right (CMS/HCC) Chronic allergic rhinitis History of myocardial infarction Varicose veins with pain Peripheral arterial disease (CMS/HCC) Healthcare maintenance Chronic shoulder pain, unspecified laterality BASIC METABOLIC PANEL Routine 06/16/2024 11:25 AM EDT Essential hypertension Other hyperlipidemia Depressive disorder Aortic valve stenosis Squamous cell carcinoma lung, right (CMS/HCC) Chronic allergic rhinitis History of myocardial infarction Varicose veins with pain Peripheral arterial disease (CMS/HCC) Healthcare maintenance Chronic shoulder pain, unspecified laterality HEMOGLOBIN A1C Routine 06/16/2024 11:25 AM EDT Essential hypertension Other hyperlipidemia Depressive disorder Aortic valve stenosis Squamous cell carcinoma lung, right (CMS/HCC) Chronic allergic rhinitis History of myocardial infarction Varicose veins with pain Peripheral arterial disease (CMS/HCC) Healthcare maintenance Chronic shoulder pain, unspecified laterality HEPATIC FUNCTION PANEL Routine 06/16/2024 11:25 AM EDT Essential hypertension Other hyperlipidemia Depressive disorder Aortic valve stenosis Squamous cell carcinoma lung, right (CMS/HCC) Chronic allergic rhinitis History of myocardial infarction Varicose veins with pain Peripheral arterial disease ([facility]/HCC) Healthcare maintenance Chronic shoulder pain, unspecified laterality LIPID PANEL, STANDARD Routine 06/16/2024 11:25 AM EDT Other hyperlipidemia from Last 3 Months Results * CBC (06/16/2024 11:25 AM EDT) White Blood Count 7.3 4.8 - 10.8 X10*3/uL [facility] Red Blood Count 4.62 4.20 - 5.50 X10*6/uL [facility] Hemoglobin 13.9 12.0 - 16.0 g/dl [facility] Hematocrit 42.5 37.0 - 47.0 % [facility] Mean Corpuscular Volume 92.0 80.0 - 98.0 fL [facility] Mean Corpuscular Hemoglobin 30.1 27.0 - 33.0 pg [facility] Mean Corpuscular HGB Conc 32.7 31.0 - 35.0 g/dl [facility] Red Cell Distribution Width 13.1 11.0 - 16.0 % [facility] Platelet Count 216 160 - 400 X10*3/uL [facility] Mean Platelet Volume 11.4 9.4 - 12.3 fL [facility] NRBC Pct Auto 0.0 0.0 - 0.2 /100WBC [facility] NRBC Abs Auto 0.000 0.0 - 0.012 X10*3/uL [facility] Blood Venous blood specimen / Unknown 06/16/2024 11:25 AM EDT 06/16/2024 1:02 PM EDT us Verna Sullivan DO LAB BLOOD ORDERABLES Final R esult [facility] [address] [place] [phone] * Hemoglobin A1c (06/16/2024 11:25 AM EDT) Hemoglobin A1c 5.8 <6.0 % [facility] Comment:Hemoglobin A1C Refer ence Range Adults: 4.8 - 6.0 % Non diabetic: < 6.0 % Goal: < 7.0 %Additional Action Suggested: > 8.0 %Note: Hemoglobin A1c results are invalid for patients with abnormal amounts of HbF. Blood transfusions may impact the HbA1c concentration in the patient sample. Estimated Average Glucose 120 mg/dL [facility] Comment:eAG = Estimated ave rage glucose which is %A1C expressed asaverage glucose, using the formula of the A0X-EewsxqgIqrqocy Glucose study (ADAG), Diabetes Care, Vol.31,#8,2007 Blood Venous blood specimen / Unknown 06/16/2024 11:25 AM EDT 06/16/2024 1:02 PM EDT us Verna Sullivan DO LAB BLOOD ORDERABLES Final R esult [facility] [address] [place] [address] [phone] from Last 3 Months Insurance [facility] [employer] (O D-SNP) RONNA SIDDIQUI [id number] Care Teams Collator Hand Relationship Specialty Start Date End Date Verna Sullivan DO [address] [place] [phone] PCP - General Family Medicine 02/01/12
--- OUTSIDE RECORDS SUMMARY | 2024-06-16 13:47 | XMS_ITS | Encounter Summary ---
Author Organization [employer] Address [address] [facility] [address] [place] [address] Care Team Providers Care Outdoor Power Equipment Mechanic Name Role Phone Verna Sullivan DO Primary Care Provider + [phone] Reason for Visit * Reason Comments Med Refill Encounter Details Date Type Department Care Team (Late st Contact Info) Description 07/02/2023 Refill [facility] [address] [place], [place] [phone] Verna Sullivan DO [address] [place], [place] [phone] Essential hypertension Social History Tobacco Use Types Packs/Day Years [...] Info) Description 09/05/2024 2:00 PM EDT Telemedicine [facility] [address] [place] [address] Lucrecia Shah RN documented as of this encounter Visit Diagnoses Diagnosis Essential hypertension Unspecified essential hypertension documented in this encounter Additional Health Concerns Assessment Noted Time PHQ-9 Depression Total Score: 3 05/16/19 23 9:13 AM EDT documented as of this encounter Care Teams Outdoor Power Equipment Mechanic Relationship Specialty Start Date End Date Verna Sullivan DO [address] [place] [address] PCP - General Family Medicine 02/01/12 documented as of this encounter
--- OUTSIDE RECORDS SUMMARY | 2024-06-16 13:47 | XMS_ITS | Encounter Summary ---
Author Organization [employer] Address [address] [facility] [address] [place] [address] Care Team Providers Care Land Leveler Name Role Phone Verna Sullivan Primary Care Provider + [phone] Reason for Visit * Reason Comments Med Refill Encounter Details Date Type Department Care Team (Late st Contact Info) Description 06/12/2023 Refill [facility] [address] [place], [place] [phone] [facility] [address] [place], [place] [phone] Social History Tobacco Use Types Packs/Day Years [...] Info) Description 09/05/2024 2:00 PM EDT Telemedicine [facility] [address] [place] [address] Lucrecia Shah RN documented as of this encounter Visit Diagnoses Not on filedocumented in this encounter Additional Health Concerns Assessment Noted Time PHQ-9 Depression Total Score: 3 05/16/19 23 9:13 AM EDT documented as of this encounter Care Teams Land Leveler Relationship Specialty Start Date End Date Verna Sullivan DO [address] [place] [address] PCP - General Family Medicine 02/01/12 documented as of this encounter
--- OUTSIDE RECORDS SUMMARY | 2024-06-16 13:47 | XMS_ITS | Encounter Summary ---
Author Organization [employer] Address [address] [facility] [address] [place] [address] Care Team Providers Care Steel [employer] Supervisor Name Role Phone Verna Sullivan DO Primary Care Provider + [phone] Encounter Details Date Type Department Care Team (Late st Contact Info) Description 06/16/2024 10:30 AM EDT Office Visit [facility] [address] [place], [place] [phone] Verna Sullivan DO [address] [place], [place] [phone] Essential hypertension (Primary Dx); Other hyperlipidemia; Depressive disorder; Aortic valve stenosis; Squamous cell carcinoma lung, right (CMS/HCC); Chronic allergic rhinitis; History of myocardial infarction; Varicose veins with pain; Peripheral arterial disease ([facility]/HCC); Healthcare maintenance; Chronic shoulder pain, unspecified laterality Social History Tobacco Use Types Packs/Day Years [...] AM EDT documented as of this encounter Last Filed Vital Signs Vital Sign Reading [...] Mass Index 26.5 06/16/2024 10:38 AM EDT documented in this encounter Plan of Treatment Upcoming Encounters Date Type Department Care Team (Late st Contact Info) Description 09/05/2024 2:00 PM EDT Telemedicine [facility] [address] [place] [address] Lucrecia Shah, TAMIR Pending Results Name Type Priority Associated Diagnoses Date /Time Hepatic Function Panel Lab Routine Essential hypertension Other hyperlipidemia Depressive disorder Aortic valve stenosis Squamous cell carcinoma lung, right (CMS/HCC) Chronic allergic rhinitis History of myocardial infarction Varicose veins with pain Peripheral arterial disease (CMS/HCC) Healthcare maintenance Chronic shoulder pain, unspecified laterality 06/16/2024 11:25 AM EDT Basic Metabolic Panel Lab Routine Essential hypertension Other hyperlipidemia Depressive disorder Aortic valve stenosis Squamous cell carcinoma lung, right (CMS/HCC) Chronic allergic rhinitis History of myocardial infarction Varicose veins with pain Peripheral arterial disease (CMS/HCC) Healthcare maintenance Chronic shoulder pain, unspecified laterality 06/16/2024 11:25 AM EDT Scheduled Orders Name Type Priority Associated Diagnoses Orde r Schedule T4, Free Lab Routine Essential hypertension Other hyperlipidemia Depressive disorder Aortic valve stenosis Squamous cell carcinoma lung, right (CMS/HCC) Chronic allergic rhinitis History of myocardial infarction Varicose veins with pain Peripheral arterial disease (CMS/HCC) Healthcare maintenance Chronic shoulder pain, unspecified laterality Expected: 06/16/2024 (Approximate), Expires: 06/16/2025 Vitamin D, 25-Hydroxy, Total, Immunoassay Lab Routine Essential hypertension Other hyperlipidemia Depressive disorder Aortic valve stenosis Squamous cell carcinoma lung, right (CMS/HCC) Chronic allergic rhinitis History of myocardial infarction Varicose veins with pain Peripheral arterial disease (CMS/HCC) Healthcare maintenance Chronic shoulder pain, unspecified laterality Expected: 06/16/2024 (Approximate), Expires: 06/16/2025 Lipid Panel, Standard Lab Routine Essential hypertension Other hyperlipidemia Depressive disorder Aortic valve stenosis Squamous cell carcinoma lung, right (CMS/HCC) Chronic allergic rhinitis History of myocardial infarction Varicose veins with pain Peripheral arterial disease (CMS/HCC) Healthcare maintenance Chronic shoulder pain, unspecified laterality Expected: 06/16/2024 (Approximate), Expires: 06/16/2025 TSH Lab Routine Essential hypertension Other hyperlipidemia Depressive disorder Aortic valve stenosis Squamous cell carcinoma lung, right (CMS/HCC) Chronic allergic rhinitis History of myocardial infarction Varicose veins with pain Peripheral arterial disease (CMS/HCC) Healthcare maintenance Chronic shoulder pain, unspecified laterality Expected: 06/16/2024 (Approximate), Expires: 06/16/2025 Albumin, Random Urine W/Creatinine Lab Routine Essential hypertension Other hyperlipidemia Depressive disorder Aortic valve stenosis Squamous cell carcinoma lung, right (CMS/HCC) Chronic allergic rhinitis History of myocardial infarction Varicose veins with pain Peripheral arterial disease (CMS/HCC) Healthcare maintenance Chronic shoulder pain, unspecified laterality Expected: 06/16/2024 (Approximate), Expires: 06/16/2025 documented as of this encounter Procedures Procedure Name Priority Date/Time Associated Diagnosis [...] Healthcare maintenance Chronic shoulder pain, unspecified laterality documented in this encounter Results * CBC (06/16/2024 11:25 AM EDT) White Blood Count 7.3 4.8 - 10.8 X10*3/uL [facility] Red Blood Count 4.62 4.20 - 5.50 X10*6/uL [facility] Hemoglobin 13.9 12.0 - 16.0 g/dl [facility] Hematocrit 42.5 37.0 - 47.0 % [facility] Mean Corpuscular Volume 92.0 80.0 - 98.0 fL [facility] Mean Corpuscular Hemoglobin 30.1 27.0 - 33.0 pg [facility] Mean Corpuscular HGB Conc 32.7 31.0 - 35.0 g/dl [facility] Red Cell Distribution Width 13.1 11.0 - 16.0 % [facility] Platelet Count 216 160 - 400 X10*3/uL [facility] Mean Platelet Volume 11.4 9.4 - 12.3 fL [facility] NRBC Pct Auto 0.0 0.0 - 0.2 /100WBC [facility] NRBC Abs Auto 0.000 0.0 - 0.012 X10*3/uL [facility] Blood Venous blood specimen / Unknown 06/16/2024 11:25 AM EDT 06/16/2024 1:02 PM EDT Verna Sullivan DO LAB BLOOD ORDERABLES Final R esult [facility] [address] [place] [phone] * Hemoglobin A1c (06/16/2024 11:25 AM EDT) Hemoglobin A1c 5.8 <6.0 % [facility] Comment:Hemoglobin A1C Refer ence Range Adults: 4.8 - 6.0 % Non diabetic: < 6.0 % Goal: < 7.0 %Additional Action Suggested: > 8.0 %Note: Hemoglobin A1c results are invalid for patients with abnormal amounts of HbF. Blood transfusions may impact the HbA1c concentration in the patient sample. Estimated Average Glucose 120 mg/dL [facility] Comment:eAG = Estimated ave rage glucose which is %A1C expressed asaverage glucose, using the formula of the F4Q-WjuvedtSknejos Glucose study (ADAG), Diabetes Care, Vol.31,#8,Sep. 2007 Blood Venous blood specimen / Unknown 06/16/2024 11:25 AM EDT 06/16/2024 1:02 PM EDT Verna Sullivan DO LAB BLOOD ORDERABLES Final R esult [facility] [address] [place] [phone] documented in this encounter Visit Diagnoses Diagnosis Essential hypertension- Primary Unspecified essential hypertension Other hyperlipidemia Depressive disorder Depressive disorder, not elsewhere classified Aortic valve stenosis Squamous cell carcinoma lung, right (CMS/HCC) Chronic allergic rhinitis History of myocardial infarction Varicose veins with pain Peripheral arterial disease ([facility]/HCC) Unspecified peripheral vascular disease Healthcare maintenance Chronic shoulder pain, unspecified laterality documented in this encounter Additional Health Concerns Assessment Noted Time PHQ-9 Depression Total Score: 6 10/30/19 24 10:37 AM EDT documented as of this encounter Care Teams Steel Floor Pan Placing Supervisor Relationship Specialty Start Date End Date Verna Sullivan DO [address] [place] [phone] PCP - General Family Medicine 02/01/12 documented as of this encounter
--- OUTSIDE RECORDS SUMMARY | 2024-06-16 13:47 | XMS_ITS | Encounter Summary ---
Author Organization [employer] Address [address] [facility] [address] [place] [address] Care Team Providers Care [employer] Maintenance Worker Name Role Phone Verna Sullivan DO Primary Care Provider + [phone] Reason for Visit * Reason Onset Date Comments Durable Medical Equipment 12/12/2022 Boost Encounter Details Date Type Department Care Team ([facility] st Contact Info) Description 12/12/2022 Telephone [facility] [address] [place], [place] [phone] Verna Sullivan DO [address] [place] [address] Durable Medical Equipment (Boost) Social History Tobacco Use Types Packs/Day Years [...] encounter Miscellaneous Notes * Telephone Encounter - Randa Mac - 12/18/2022 2:07 PM EDT Tc from pt daughter requesting status in regards to message above. Please contact daughter at [phone] ([place]) * Telephone Encounter - Cecilia Thompson - 12/14/2022 3:42 PM EDT Please see message below and advise. Thank you * Telephone Encounter - Chin Springer - 12/12/2022 3:39 PM EDT Tc from Maria Del Carmen requesting change from Boost Plus to boostand to be sent to [facility] [address] [facility] [id number] documented in this encounter Plan of Treatment Upcoming Encounters Date Type Department Care Team (Late st Contact Info) Description 09/05/2024 2:00 PM EDT Telemedicine [facility] [address] [place] [address] Lucrecia Shah, RN documented as of this encounter Visit Diagnoses Not on filedocumented in this encounter Additional Health Concerns Assessment Noted Time PHQ-9 Depression Total Score: 3 05/16/19 23 9:13 AM EDT documented as of this encounter Care Teams [employer] Maintenance Worker Relationship Specialty Start Date End Date Verna Sullivan DO [address] [place] [phone] PCP - General Family Medicine 02/01/12 documented as of this encounter
[2024-06-16 13:48] LABS: Creatinine Urine 56.19 mg/dL
== END 2024-06-16 11:23 | disposition home or self-care (01) ==
LOC: HO.HHCL 11:22
PROVIDERS: Visit Provider Family Medicine
DX: I10 Essential (primary) hypertension (principal); E78.49 Other hyperlipidemia; F32.A Depression, unspecified; I35.0 Nonrheumatic aortic (valve) stenosis; C34.91 Malignant neoplasm of unspecified part of right bronchus or lung; J30.9 Allergic rhinitis, unspecified; I25.2 Old myocardial infarction; I73.9 Peripheral vascular disease, unspecified; G89.29 Other chronic pain; Z13.1 Encounter for screening for diabetes mellitus; Z00.00 Encounter for general adult medical examination without abnormal findings
CPT/HCPCS: 36415; 80048; 80061; 80076; 82043; 82306; 82570; 83036; 84439; 84443; 85027